=== PATIENT | male | born 1950 | race Caucasian/White ===

== ENCOUNTER 2016-07-23 11:24 | Emergency (ER) | payer MEDICARE ==
[~2016-07-23] VITALS: Ht 188 cm; Wt 108.0 kg
[2016-07-23] MEDS ORDERED: TAMS-3 PO (11:35)
--- NOTE | 2016-07-23 11:35 | NUR ---
DR SMITH AT THE BEDSIDE FOR EVAL AND EXAM.
[2016-07-23 11:43] LABS: *BILIRUBIN,URIN NEGATIVE (NEGATIVE); *BLOOD, URINE 3+ (NEGATIVE); *CLARITY,URINE CLOUDY (CLEAR); *COLOR,URINE YELLOW (YELLOW); *KETONES,URINE NEGATIVE (NEGATIVE); *PROTEIN,URINE 2+ (NEGATIVE); *UROBILINOGEN,URINE 0.2 E.U./dl (NORMAL); LEUKOCYTE ESTERASE ,URINE NEGATIVE (NEGATIVE); NITRITE, URINE NEGATIVE (NEGATIVE); PH,URINE 5.5 (5.0-8.0); UGLUCOSE NEGATIVE (NEGATIVE)
[2016-07-23] MEDS ORDERED: IV NORMAL SALINE 1000 ML BAG IV ONE ×2 (11:45→12:45)
[2016-07-23] MEDS ORDERED: ONDANSETRON 4 MG/2 ML VIAL IV ONE (11:45)
[2016-07-23] MEDS ORDERED: HYDROMORPHONE 1 MG/1 ML DISP.SYRIN IV ONE ×2 (11:45→14:00)
[2016-07-23] MEDS ORDERED: ONDANSETRON 4 MG/2 ML VIAL ONE ×2 (11:57→14:02)
[2016-07-23] MEDS ORDERED: HYDROMORPHONE 1 MG/1 ML DISP.SYRIN ONE ×2 (11:57→14:02)
--- NOTE | 2016-07-23 11:57 | NUR ---
PT LEFT ER FOR CT.
[2016-07-23 12:01] LABS: BACTERIA,URINE NONE SEEN /HPF (NONE SEEN); CALCIUM OXALATE CRYSTALS,UR FEW /HPF (NONE SEEN); MUCUS,URINE MANY /LPF (0-FEW); RBC,URINE TNTC /HPF (0-3); SQUAMOUS EPITHELIAL CELL,UR FEW /HPF (NONE SEEN)
[2016-07-23] MEDS ORDERED: KETOROLAC TROMETHAMINE 30 MG INJ IVP ONE (13:00)
[2016-07-23] MEDS ORDERED: KETOROLAC TROMETHAMINE 30 MG INJ ONE (13:02)
[2016-07-23] MEDS ORDERED: ONDANSETRON IV *ER 4 MG/2 ML VIAL IV ONE (14:00)
[2016-07-23 14:01] VITALS: BP 128/71
--- NOTE | 2016-07-23 14:01 | NUR ---
IV removed. Catheter intact and site benign. Pressure and 4x4 gauze applied to site. No bleeding noted.
--- NOTE | 2016-07-23 14:02 | NUR ---
Patient discharged to home in stable conditon. Written and verbal after care instructions given. Patient verbalizes understanding of instructions.
== END 2016-07-23 14:06 | disposition home or self-care (01) ==
LOC: ER 11:24
DX: N20.0 Calculus of kidney (principal); Z87.442 Personal history of urinary calculi; Z88.0 Allergy status to penicillin; Z88.2 Allergy status to sulfonamides
CPT/HCPCS: A4663; J1170; J1885; J2405; J7030

== ENCOUNTER 2019-04-18 02:33 | Emergency (ER) | payer MEDICARE, BC ==
[~2019-04-18] VITALS: Ht 188 cm; Wt 108.9 kg
[~2019-04-18 02:33] MED LIST: TAMS-3 PO
[2019-04-18] MEDS ORDERED: [UNRECOGNIZED DRUG - REMARK] (02:44)
[2019-04-18] MEDS ORDERED: [UNRECOGNIZED DRUG - REMARK] (02:44)
[2019-04-18] MEDS ORDERED: CEFTRIAXONE 1 G VIAL ONE (02:56)
[2019-04-18] MEDS ORDERED: LIDOCAINE HCL 1% 20 ML VIAL ONE (02:56)
[2019-04-18] MEDS ORDERED: CEFTRIAXONE 1 G VIAL IM ONE (03:00)
[2019-04-18 03:05] VITALS: BP 132/76
--- NOTE | 2019-04-18 03:05 | NUR ---
Patient discharged to home in stable conditon. Written and verbal after care instructions given. Patient verbalizes understanding of instructions. Pt walked out of ER in stable gait. No acute distress noted. Vital signs stable. Respirations even +unlabored.
== END 2019-04-18 03:06 | disposition home or self-care (01) ==
LOC: ER 02:42
DX: L03.011 Cellulitis of right finger (principal); E78.5 Hyperlipidemia, unspecified; Z88.0 Allergy status to penicillin; Z88.2 Allergy status to sulfonamides; Z79.899 Other long term (current) drug therapy
CPT/HCPCS: 96372; 99283; J0696; J3490; A4663

== ENCOUNTER 2021-12-28 18:08 | Emergency (ER) | payer MEDICARE, BC ==
[~2021-12-28] VITALS: Ht 188 cm; Wt 111.1 kg
[~2021-12-28 18:08] MED LIST changes: +[UNRECOGNIZED DRUG - REMARK]; +[UNRECOGNIZED DRUG - REMARK]
[2021-12-28 18:40] LABS: HEMATOCRIT 41.6 % (36.7-47.1); MEAN CORPUSCULAR HEMOGLOBIN 32.3 uug (23.8-33.4); MEAN CORPUSCULAR VOLUME 94.6 fL (73.0-96.2); PLATELET COUNT (AUTO) 202 K/uL (152-348)
[2021-12-28] MEDS ORDERED: IV NS 1000 ML 1,000 ML IV ONE (19:00)
[2021-12-28] MEDS ORDERED: KETOROLAC TROMETHAMINE 30 MG INJ IVP ONE (19:00)
[2021-12-28 19:07] LABS: BILIRUBIN,DIRECT 0.1 mg/dL (0.0-0.2); BILIRUBIN,TOTAL 0.7 mg/dL (0.2-1.0); CREATININE 1.3 mg/dL (0.6-1.3); POTASSIUM 4.1 mmol/L (3.5-5.1); TOTAL PROTEIN, SERUM 7.2 g/dL (6.4-8.2)
--- NOTE | 2021-12-28 19:30 | NUR ---
Report recieved from Liset BHATTI.
[2021-12-28] MEDS ORDERED: KETOROLAC TROMETHAMINE 30 MG INJ ONE (19:47)
[2021-12-28] MEDS ORDERED: MORPHINE SULFATE 4 MG/1 ML DISP.SYRIN ONE (20:45)
[2021-12-28] MEDS ORDERED: MORPHINE SULFATE 4 MG/1 ML DISP.SYRIN IM ONE (20:45)
[2021-12-28 21:02] LABS: *BILIRUBIN,URIN NEGATIVE (NEGATIVE); *BLOOD, URINE NEGATIVE (NEGATIVE); *CLARITY,URINE CLEAR (CLEAR); *COLOR,URINE YELLOW (YELLOW); *KETONES,URINE NEGATIVE (NEGATIVE); *UROBILINOGEN,URINE 0.2 E.U./dl (NORMAL); LEUKOCYTE ESTERASE ,URINE NEGATIVE (NEGATIVE); NITRITE, URINE NEGATIVE (NEGATIVE); UGLUCOSE NEGATIVE (NEGATIVE)
[2021-12-28] MEDS ORDERED: NAPR-1009 PO (22:06)
[2021-12-28] MEDS ORDERED: HYDR-4209 PO (22:06)
--- NOTE | 2021-12-28 22:11 | NUR ---
Patient discharged to home in stable condition. A/Ox4. NAD noted. All belongins with patient. Written and verbal after care instructions given. Patient verbalizes understanding of instructions. Stressed follow up or return to ER for worsening s/s.
[2021-12-28 22:37] VITALS: BP 131/80
== END 2021-12-28 22:11 | disposition home or self-care (01) ==
LOC: ER 18:08
DX: M54.50 Low back pain, unspecified (principal); Z87.442 Personal history of urinary calculi; E78.5 Hyperlipidemia, unspecified
CPT/HCPCS: 99284; 74176; 96374; 96361; 80076; 80048; 81003; 83690; 84443; 85025; 36415; 96372; J1885; J2270; J7040; A4663

== ENCOUNTER 2022-07-19 09:33 | Emergency (ER) | payer MEDICARE, BC ==
[~2022-07-19] VITALS: Ht 188 cm; Wt 111.1 kg
[~2022-07-19 09:33] MED LIST changes: +HYDR-4209 PO; +NAPR-1009 PO
[2022-07-19] MEDS ORDERED: LIDOCAINE 1%-EPI 1:100,000 20 ML VIAL IJ ONE (10:00)
[2022-07-19] MEDS ORDERED: TDAP DIPH,PERTUSS,TET VAC/PF 0.5 ML DISP.SYRIN IM ONE ×2 (10:00→10:17)
--- NOTE | 2022-07-19 10:00 | NUR ---
Pt seen by . Safety measures in place. Will continue to monitor.
[2022-07-19] MEDS ORDERED: LIDOCAINE 2%-EPI 1:100,000 20 ML VIAL ONE (10:08)
--- NOTE | 2022-07-19 10:18 | NUR ---
Cleaned Pt's wound with Betadine & NS. Safety measures in place. Will continue to monitor.
[2022-07-19] MEDS ORDERED: BACITRACIN ZINC OINT 15 GM TUBE ONE (11:13)
[2022-07-19 11:27] VITALS: BP 121/80
--- NOTE | 2022-07-19 11:27 | NUR ---
Patient discharged to home in stable condition. Written and verbal after care instructions given. Patient verbalizes understanding of instructions. Stressed follow up or return to ER for worsening s/s.
== END 2022-07-19 11:28 | disposition home or self-care (01) ==
LOC: ER 09:33
DX: S01.81XA Laceration without foreign body of other part of head, initial encounter (principal); M54.2 Cervicalgia; M79.644 Pain in right finger(s); E78.5 Hyperlipidemia, unspecified; Z88.0 Allergy status to penicillin; Z88.2 Allergy status to sulfonamides; Z79.899 Other long term (current) drug therapy; W01.198A Fall on same level from slipping, tripping and stumbling with subsequent striking against other object, initial encounter; Y93.89 Activity, other specified; Y92.89 Other specified places as the place of occurrence of the external cause; Y99.8 Other external cause status
CPT/HCPCS: 70450; 72125; 73130; 90715; A4663

== ENCOUNTER 2025-01-21 19:10 | Emergency (ER) | payer MEDICARE, BC ==
[~2025-01-21] VITALS: Ht 188 cm; Wt 100.7 kg
[2025-01-21 19:13] VITALS: BP 126/70
[2025-01-21] MEDS ORDERED: MORPHINE SULFATE 4 MG/1 ML DISP.SYRIN ONE (19:39)
[2025-01-21] MEDS ORDERED: ONDANSETRON 4 MG/2 ML VIAL ONE (19:39)
[2025-01-21] MEDS: MORPHINE SULFATE 4 MG/1 ML DISP.SYRIN IV ONE (19:45)
[2025-01-21] MEDS: IV NORMAL SALINE 1000 ML BAG IV ONE (19:45)
[2025-01-21] MEDS: ONDANSETRON 4 MG/2 ML VIAL IV ONE (19:45)
[2025-01-21 20:55] LABS: *BILIRUBIN,URIN NEGATIVE (NEGATIVE); *BLOOD, URINE 3+ (NEGATIVE); *CLARITY,URINE CLEAR (CLEAR); *COLOR,URINE YELLOW (YELLOW); *KETONES,URINE NEGATIVE (NEGATIVE); *PROTEIN,URINE NEGATIVE (NEGATIVE); *UROBILINOGEN,URINE 0.2 E.U./dl (NORMAL); LEUKOCYTE ESTERASE ,URINE NEGATIVE (NEGATIVE); NITRITE, URINE NEGATIVE (NEGATIVE); UGLUCOSE NEGATIVE (NEGATIVE)
[2025-01-21 21:08] LABS: SQUAMOUS EPITHELIAL CELL,UR FEW /HPF (NONE SEEN)
[2025-01-21] MEDS ORDERED: MORPHINE SULFATE 2 MG/1 ML DISP.SYRIN ONE (22:10)
[2025-01-21] MEDS: MORPHINE SULFATE 2 MG/1 ML DISP.SYRIN IV ONE (22:12)
[2025-01-21] MEDS ORDERED: HYDR-3980 PO (22:25)
[2025-01-21] MEDS ORDERED: TAMS-3 PO (22:25)
[2025-01-21] MEDS ORDERED: TADA5TAB2 PO (22:25)
[2025-01-21 22:44] VITALS: BP 126/70; O2SAT 97
== END 2025-01-21 22:45 | disposition home or self-care (01) ==
LOC: ER 19:15
DX: R31.29 Other microscopic hematuria (principal); R10.A1 Flank pain, right side; I51.9 Heart disease, unspecified; N40.0 Benign prostatic hyperplasia without lower urinary tract symptoms; Z88.0 Allergy status to penicillin; Z88.2 Allergy status to sulfonamides; Z88.7 Allergy status to serum and vaccine
CPT/HCPCS: 99285; 74176; 96374; 96361; 96375; 81001; 96376; J2405; J2270 ×2; J7040; A4606; A4663